=== PATIENT | female | born 1970 | race Caucasian/White ===

== ENCOUNTER 2024-02-09 19:23 | Emergency (ER) | payer MEDICARE, SELFPAY ==
--- NOTE | ~2024-02-09 | XR_ITS ---
XR wrist LT min 3V Ordering provider: Hortensia Brandon APRN History: . pain and swelling . Comparison: None. FINDINGS: BONES: Fracture of the ulnar styloid is noted. Which may be acute or chronic. Lucency is seen in the distal radius suggestive of a fracture. Follow-up advised. No definite scaphoid fracture. JOINT SPACES: Well maintained. SOFT TISSUES: Normal. IMPRESSION: Highly suggestive fracture in the distal radius with fracture of the ulnar styloid. Clinical evaluati on for tenderness in the area advised. Reviewed, dictated and finalized at location A. IMPRESSION: Highly suggestive fracture in the distal radius with fracture of the ulnar styl oid. Clinical evaluation for tenderness in the area advised.
[2024-02-09 19:31] VITALS: BP 145/96; PULSE 98; RESP 16; TEMP 37.2; O2SAT 100
--- NOTE | 2024-02-09 19:32 | ED.UPPEXIN ---
HPI - Extremity Injury (Upper) General Chief Complaint: Extremity Injury, Upper Stated Complaint: Injured Left Hand Time Seen by Provider: 02/09/24 19:32 History of Present Illness HPI narrative: patient presents with complaints of left wrist swelling that began just prior to arrival. She reports she fell, caught herself on the wrist. She retains full range of motion to the fingers of the affected extremity. Range of motion to the wrist is limited. She has not taken any medication for her symptoms prior to arrival, she has not used any ice, she has not applied any compression. She denies other injury and trauma. She voices no other concerns or complaints at this time. Related Data Home Medications Medication Instructions Recorded Confirmed atorvastatin 20 mg tablet mg 02/09/24 chlorthalidone 25 mg tablet mg 02/09/24 hydrochlorothiazide 25 mg tablet mg 02/09/24 letrozole 2.5 mg tablet mg 02/09/24 losartan 100 mg tablet mg 02/09/24 meclizine 25 mg tablet mg 02/09/24 oxybutynin chloride 10 mg mg PO 02/09/24 tablet,extended release 24 hr pantoprazole 40 mg tablet,delayed mg PO 02/09/24 release venlafaxine 100 mg tablet mg 02/09/24 Allergies Allergy/AdvReac Type Severity Reaction Status Date / Time No Known Allergies Allergy Verified 02/09/24 19:36 Review of Systems Review of Systems: All systems reviewed & are unremarkable except as noted in HPI and below Constitutional: Constitutional: Reports no additional constitutional complaints ENT: Reports system reviewed and no additional complaints, except as documented Cardiovascular: Cardiovascular: Reports no additional cardiovascular complaints Respiratory: Respiratory: Reports no additional respiratory complaints Gastrointestinal: Gastrointestinal: Reports no additional gastrointestinal complaints Musculoskeletal: Musculoskeletal: Reports as per HPI Exam Const: General: cooperative, no acute distress, alert and awake Orientation/consciousness: oriented to person, oriented to place and oriented to time HENMT: Head: normal to inspection Resp: Effort & Inspection: normal respiratory effort and able to speak in complete sentences Auscultation: clear to auscultation bilaterally, no crackles, no rales, no rhonchi and no wheezes Cardio: Palpation: normal PMI Rate: regular rate Rhythm: regular rhythm Heart sounds: S1 normal heart sound present and S2 normal heart sound present Neuro: General: oriented to person, oriented to place and oriented to time Cranial nerves: Yes CN's II-XII intact bilaterally Extrem: Left upper extremity: normal capillary refill and wrist abnormal to inspection obvious deformity, tenderness of the distal ulna, swelling and abnormal ROM with range as follows (Extremely limited range of motion) Psych: Appearance: grossly normal Thought process: Normal thought process present Insight: Good insight present (Psych) Judgement: Good judgement present (Psych) Course Course Level of Care: Express Care Visit Vital Signs Vital signs: Vital Signs Temperature 99 F 02/09/24 19:31 Pulse Rate 98 02/09/24 19:31 Respiratory Rate 16 02/09/24 19:31 Blood Pressure 145/96 H 02/09/24 19:31 Pulse Oximetry 100 02/09/24 19:31 Temperature 99 F 02/09/24 19:31 Pulse Rate 98 02/09/24 19:31 Respiratory Rate 16 02/09/24 19:31 Blood Pressure 145/96 H 02/09/24 19:31 Pulse Oximetry 100 02/09/24 19:31 MDM - Extremity Injury (Upper) MDM Narrative Medical decision making narrative: Patient with x-ray confirmed wrist fracture. Short arm volar splint and sling applied. Neurovascular status intact pre and post splint application. Follow-up with orthopedics. Emergency department for new or worse symptoms. TERESA discussed Differential Diagnosis Differential diagnosis: Likely sprain and strain of wrist and fracture of wrist Medical Records Attestation: I reviewed the patient's medical records. Imaging Data
== END 2024-02-09 20:18 | disposition home or self-care (01) ==
PROVIDERS: Emergency Provider Nurse Practitioner Family
DX: S62.102A Fracture of unspecified carpal bone, left wrist, initial encounter for closed fracture (principal); W19.XXXA Unspecified fall, initial encounter
CPT/HCPCS: 29125; 73110; 99214; A4565; G0463